=== PATIENT | female | born 1955 | race Caucasian/White ===

== ENCOUNTER → 2017-11-07 | Outpatient (CLI) | payer MEDICARE | END | disposition home or self-care (01) | LOC: MERGE 12:07 → CFH 12:07 | PROVIDERS: ATTEND Nurse Practitioner | DX: Z12.31 Encounter for screening mammogram for malignant neoplasm of breast (principal) | CPT/HCPCS: 77063; 77067 ==

== ENCOUNTER 2020-03-19 12:13 | Outpatient (CLI) | payer MEDICARE | END 2020-03-19 23:59 | disposition home or self-care (01) | LOC: RAD 12:13 | PROVIDERS: ATTEND Nurse Practitioner Family | DX: R22.0 Localized swelling, mass and lump, head (principal) | CPT/HCPCS: 70544 ==